=== PATIENT | male | born 1990 | race Caucasian/White ===

== ENCOUNTER → 2017-03-23 | Outpatient (REF) | LOC: WSOH 10:32 | DX: Z00.00 Encounter for general adult medical examination without abnormal findings (principal) ==

== ENCOUNTER 2021-03-11 16:00 | Outpatient (RCR) | payer OTHER | END 2021-03-11 16:35 | disposition home or self-care (01) | LOC: WSPT 16:00 | DX: M79.18 Myalgia, other site (principal) ==